=== PATIENT | female | born 1990 | race American Indian/Alaskan Native ===

== ENCOUNTER 2021-03-29 20:18 | Emergency (ER) | payer MEDICAID, OTHER ==
[2021-03-29] MEDS ORDERED: KETOROLAC 30 MG/1 ML INJ IV ONE (20:46)
[2021-03-29 20:54] LABS: Basophils % (Auto) 0.6 % (0.0-1.8); Eosinophils # (Auto) 0.1 K/mm3 (0.0-0.4); Eosinophils % (Auto) 1.9 % (0.0-4.3); Hemoglobin 13.1 gm/dl (10.1-14.3); Lymphocytes # (Auto) 2.5 K/mm3 (1.2-5.4); Lymphocytes % (Auto) 34.2 % (13.4-35.0); Mean Corpuscular HGB Conc 33 % (30-34); Mean Corpuscular Volume 86 fl (79-97); Monocytes # (Auto) 0.5 K/mm3 (0.0-0.8); Monocytes % (Auto) 6.1 % (0.0-7.3); Platelet Count 336 K/mm3 (140-440); Red Blood Count 4.64 M/mm3 (3.65-5.03)
--- NOTE | 2021-03-29 20:54 | Emergency Department Report ---
HPI - General Chief Complaint: Abdominal Pain Time Seen by Provider: 03/29/21 20:36 - HPI HPI: 31-year-old -[place] female, with no pertinent past medical history, presented emergency room for evaluation of lower abdominal pain. She reported that she has been experiencing this pain for about 1 year, occurring intermittently. Patient reported however pain started again today when she woke up, she reported pain is in the lower abdomen area, generally noted more in the left lower quadrant and suprapubic area, worse when she moves around and walk. She reported she is able to feel something in the lower abdomen area. She reported when she is resting the pain is 0/10. She described the pain as a pressure sensation that wax and wane. She reported no other associated symptoms, she denies fever, chills, nausea, vomiting, any urinary symptoms such as dysuria, frequency, or urgency. Patient reported that she has a scheduled ultrasound ordered by her car shagger. Patient also reported that recently that her IUD was removed and she was diagnosed with 5 days. ED Past Medical Hx - Past Medical History Additional medical history: a hernia in my chest , heart problems neve dx? - Social History Smoking Status: Never Smoker Substance Use Type: None - Medications Home Medications: Home Medications Medication Instructions Recorded Confirmed Last Taken Type Amoxicillin/K Clav Tab [Augmentin 1 tab PO Q12HR #20 tab 08/10/15 Unknown Rx 875 mg] Fluticasone [Flonase] 2 spray NS QDAY #1 bottle 08/10/15 Unknown Rx Loratadine (Nf) [Claritin] 10 mg PO DAILY #30 tablet 08/10/15 Unknown Rx Prednisone [predniSONE 10 mg 10 mg PO .TAPER #1 tab.ds.pk 08/10/15 Unknown Rx (6-Day Pack, 21 Tabs)] Promethazine /Codeine 5 ml PO Q6H PRN #150 ml 08/10/15 Unknown Rx [Phenergan/Codeine 6.25-10 mg/5 ml] ED Review of Systems ROS: Stated complaint: FIBROIDS Other details as noted in HPI Comment: All other systems reviewed and negative Constitutional: denies: chills, fever Eyes: denies: eye pain ENT: denies: ear pain, throat pain Respiratory: denies: cough, orthopnea, shortness of breath Cardiovascular: denies: chest pain, palpitations, dyspnea on exertion Endocrine: denies: excessive sweating Gastrointestinal: abdominal pain (Left lower quadrant, suprapubic,). denies: nausea, vomiting, diarrhea, constipation Genitourinary: denies: urgency, dysuria, hematuria Skin: denies: rash Neurological: denies: headache, weakness Psychiatric: denies: anxiety, depression Hematological/Lymphatic: denies: easy bleeding Physical Exam - Physical Exam Vital Signs: Vital Signs 03/29/21 20:22 Temperature 97.7 F Pulse Rate 69 Respiratory 19 Rate Blood Pressure 122/77 [Right] O2 Sat by Pulse 100 Oximetry ED Course Vital Signs 03/29/21 20:22 Temperature 97.7 F Pulse Rate 69 Respiratory 19 Rate Blood Pressure 122/77 [Right] O2 Sat by Pulse 100 Oximetry Critical care attestation.: If time is entered above; I have spent that time in minutes in the direct care of this critically ill patient, excluding procedure time. ED Disposition Condition: Stable Instructions: Abdominal Pain (ED)
--- NOTE | 2021-03-29 20:59 | Emergency Department Report ---
ED Abdominal Pain HPI - General Chief Complaint: Abdominal Pain Stated Complaint: FIBROIDS Time Seen by Provider: 03/29/21 20:36 Source: patient Mode of arrival: Ambulatory Limitations: No Limitations - History of Present Illness Initial Comments: 31-year-old -[place] female, with no pertinent past medical history, presented emergency room for evaluation of lower abdominal pain. She reported that she has been experiencing this pain for about 1 year, occurring intermittently. Patient reported however pain started again today when she woke up, she reported pain is in the lower abdomen area, generally noted more in the left lower quadrant and suprapubic area, worse when she moves around and walk. She reported she is able to feel something in the lower abdomen area. She reported when she is resting the pain is 0/10. She described the pain as a pressure sensation that wax and wane. She reported no other associated symptoms, she denies fever, chills, nausea, vomiting, any urinary symptoms such as dysuria, frequency, or urgency. Patient reported that she has a scheduled ultrasound ordered by her zipper measurer. Patient also reported that recently that her IUD was removed and she was diagnosed with 5 days -: Sudden, hour(s) Location: LUQ, suprapubic Radiation: none Migration to: LUQ, suprapubic, other (Migrating lower abdomen areas) Severity: mild Severity scale (0 -10): 0 (While being still) Quality: stabbing Consistency: intermittent Improves With: rest Worsens With: movement Associated Symptoms: denies other symptoms - Related Data Previous Rx's Medication Instructions Recorded Last Taken Type Amoxicillin/K Clav Tab [Augmentin 1 tab PO Q12HR #20 tab 08/10/15 Unknown Rx 875 mg] Fluticasone [Flonase] 2 spray NS QDAY #1 bottle 08/10/15 Unknown Rx Loratadine (Nf) [Claritin] 10 mg PO DAILY #30 tablet 08/10/15 Unknown Rx Prednisone [predniSONE 10 mg 10 mg PO .TAPER #1 tab.ds.pk 08/10/15 Unknown Rx (6-Day Pack, 21 Tabs)] Promethazine /Codeine 5 ml PO Q6H PRN #150 ml 08/10/15 Unknown Rx [Phenergan/Codeine 6.25-10 mg/5 ml] Ibuprofen [Motrin] 600 mg PO Q8H PRN 10 Days #30 03/30/21 Unknown Rx tablet Allergies Allergy/AdvReac Type Severity Reaction Status Date / Time latex Allergy Swelling Verified 03/29/21 20:22 ED Review of Systems ROS: Stated complaint: FIBROIDS Other details as noted in HPI Constitutional: denies: chills, fever Eyes: denies: eye pain ENT: denies: ear pain, throat pain Respiratory: denies: cough, orthopnea, shortness of breath Cardiovascular: denies: chest pain, palpitations, dyspnea on exertion Endocrine: denies: excessive sweating Gastrointestinal: abdominal pain (Left lower quadrant, suprapubic,). denies: nausea, vomiting, diarrhea, constipation Genitourinary: denies: urgency, dysuria, hematuria Skin: denies: rash Neurological: denies: headache, weakness Psychiatric: denies: anxiety, depression Hematological/Lymphatic: denies: easy bleeding ED Past Medical Hx - Past Medical History Additional medical history: a hernia in my chest , heart problems neve dx? - Social History Smoking Status: Never Smoker Substance Use Type: None - Medications Home Medications: Home Medications Medication Instructions Recorded Confirmed Last Taken Type Amoxicillin/K Clav Tab [Augmentin 1 tab PO Q12HR #20 tab 08/10/15 Unknown Rx 875 mg] Fluticasone [Flonase] 2 spray NS QDAY #1 bottle 08/10/15 Unknown Rx Loratadine (Nf) [Claritin] 10 mg PO DAILY #30 tablet 08/10/15 Unknown Rx Prednisone [predniSONE 10 mg 10 mg PO .TAPER #1 tab.ds.pk 08/10/15 Unknown Rx (6-Day Pack, 21 Tabs)] Promethazine /Codeine 5 ml PO Q6H PRN #150 ml 08/10/15 Unknown Rx [Phenergan/Codeine 6.25-10 mg/5 ml] Ibuprofen [Motrin] 600 mg PO Q8H PRN 10 Days #30 03/30/21 Unknown Rx tablet ED Physical Exam - General Limitations: No Limitations General appearance: alert, in no apparent distress - Head Head exam: Present: atraumatic, normocephalic, normal inspection - Eye Eye exam: Present: normal appearance, PERRL, EOMI Pupils: Present: normal accommodation - ENT ENT exam: Present: normal exam - Neck Neck exam: Present: normal inspection - Respiratory Respiratory exam: Present: normal lung sounds bilaterally. Absent: respiratory distress, rales, rhonchi, stridor - Cardiovascular Cardiovascular Exam: Present: regular rate, normal rhythm - GI/Abdominal GI/Abdominal exam: Present: soft, tenderness (LLQ and suprapubic area), guarding, rebound, normal bowel sounds. Absent: distended, rigid - Rectal Rectal exam: Present: deferred - Extremities Exam Extremities exam: Present: normal inspection - Back Exam Back exam: Present: normal inspection - Neurological Exam Neurological exam: Present: alert, oriented X3 ED Course Vital Signs 03/29/21 03/29/21 20:22 20:54 Temperature 97.7 F Pulse Rate 69 Respiratory 19 Rate Blood Pressure 122/77 [Right] O2 Sat by Pulse 100 99 Oximetry - Reevaluation(s) Reevaluation #1: 03/30/21 00:59 Patient presented to the ED with lower abdominal pain. Evaluated in the ED with blood test, CT scan and ultrasound. Results reviewed with patient. Patient can follow-up with her [facility] ED Medical Decision Making - Lab Data Result diagrams: 03/29/21 Unknown 03/29/21 Unknown - Radiology Data Radiology results: report reviewed I have reviewed the results of the CT scan. Patient is noted to have minimal amount of free fluid in the cul-de-sac. Adnexal mass. Also there is a 2 cm degenerated partially calcified fibroid in the anterior uterine body. There is a incidental 1.8 cm enhancing lesion in the left lobe of the liver. The auto bumper mechanic provided a preliminary report for an outpatient ultrasound showed normal ovaries with normal blood flow, no free fluid, noted calcified fibroids - Medical Decision Making Patient presents to ED for evaluation of abdominal pain. Differential diagnosis includes chronic abdominal pain, ruptured ovarian cyst, ovarian torsion, constipation, UTI, cystitis - Differential Diagnosis Ovarian rupture/cyst/torsion, appy, constipation, UTI/cystitis Critical care attestation.: If time is entered above; I have spent that time in minutes in the direct care of this critically ill patient, excluding procedure time. ED Disposition Clinical Impression: Abdominal pain Qualifiers: Abdominal location: lower abdomen, unspecified Qualified Code(s): R10.30 - Lower abdominal pain, unspecified Disposition: HOME / SELF CARE / HOMELESS Is pt being admited?: No Does the pt Need Aspirin: No Condition: Stable Instructions: Abdominal Pain (ED), Ovarian Cyst, Uterine Fibroids, Uterine Artery Embolization for Fibroids, Dysfunctional Uterine Bleeding, Abdominal Pain, Adult, [id number] Prescriptions: Ibuprofen [Motrin] 600 mg PO Q8H PRN 10 Days #30 tablet PRN Reason: Pain Referrals: KAYLA BBO JR, MD [Primary Care Provider] - 3-5 Days Time of Disposition: 01:01 Print Language: SLOVENIAN
[2021-03-29 21:14] LABS: Alanine Aminotransferase 7 units/L (7-56); Albumin 4.3 g/dL (3.9-5); Blood Urea Nitrogen 12 mg/dL (7-17); Calcium 9.1 mg/dL (8.4-10.2); Hemolysis Index 12
[2021-03-29 21:17] LABS: BUN/Creatinine Ratio 20
--- NOTE | 2021-03-30 00:54 | Cat Scan Report ---
CT OF THE ABDOMEN AND PELVIS WITH INTRAVENOUS CONTRAST INDICATION / CLINICAL INFORMATION: Extreme lower abdominal and pelvic pain. TECHNIQUE: The patient received 100 cc Omnipaque [address] scans at this location are performed using CT dose reduction for ALARA by means of automated exposure control. COMPARISON: None available. FINDINGS: ABDOMEN: There is a 1.8 cm rounded uniformly hypervascular lesion in the medial segment of the left l obe of the liver anteriorly on corticomedullary phase images. The lesion is barely perceptible on adolfo lographic phase images. No other liver lesion is seen. The gallbladder, bile ducts, pancreas, spleen, adrenal glands and kidneys are normal. There is a mode rate amount of stool throughout the colon. I see no evidence of bowel obstruction, wall thickening or free air. The aorta is normal. No adenopathy is present. The lung bases are clear. PELVIS: There is a 2.1 cm rounded mass in the anterior uterine body which demonstrates peripheral rim calcification and likely represents a degenerated fibroid. There is also a 1 cm fibroid in the super ior uterine fundus. Minimal free fluid is present in the cul-de-sac. I do not identify an adnexal mas s. A normal appendix is present and there is no evidence of diverticulitis. I do not identify a herni a. No acute osseous abnormality is seen. IMPRESSION: 1. Minimal amount of free fluid in the cul-de-sac without adnexal mass. 2. 2 cm degenerated, partially calcified fibroid in the anterior uterine body. 3. Incidental 1.8 cm enhancing lesion in the left lobe of the liver is nonspecific. Differential diag nosis includes hepatic adenoma and flash filling of a cavernous hemangioma. Nonemergent contrast-enha nced MRI may be helpful in further characterization. Signer Name: Levi Jung MD Signed: 03/30/2021 12:50 AM Workstation Name: [id number]
--- NOTE | 2021-03-30 01:32 | Ultrasound Report ---
TRANSABDOMINAL PELVIC ULTRASOUND INDICATION / CLINICAL INFORMATION: Lower abdominal/pelvic pain; torsion vs rupture cyst. COMPARISON: CT of the abdomen and pelvis earlier tonight. FINDINGS: The uterus measures 8.9 x 5.0 x 6.3 cm. The endometrial stripe measures 1 cm AP. There is a 2.2 cm ma ss in the anterior uterine body which demonstrates rim calcification. The right ovary measures 3.5 x 1.6 x 1.9 cm and the left ovary 3.4 x 2.0 x 2.5 cm. There is a 9 mm si mple follicle in the right ovary. There is normal blood flow to both ovaries on Doppler exam. No sign ificant free fluid is identified sonographically. IMPRESSION: 1. No evidence of ovarian mass or torsion. 2. 2.2 cm uterine fibroid with rim calcification. Signer Name: Levi Jung MD Signed: 03/30/2021 1:27 AM Workstation Name: [id number]
[2021-03-30 01:53] VITALS: BP 116/81
== END 2021-03-30 01:53 | disposition home or self-care (01) ==
LOC: ED 20:18
DX: R10.30 Lower abdominal pain, unspecified (principal); Z91.040 Latex allergy status
CPT/HCPCS: 36415; 74177; 76856; 80053; 83690; 84703; 85025; 96374; 99284; J1885; Q9967

== ENCOUNTER 2021-09-20 13:32 | Emergency (ER) | payer OTHER, MEDICAID ==
[2021-09-20] MEDS ORDERED: ONDANSETRON 4 MG/2 ML INJ IV ONE (15:50)
[2021-09-20] MEDS ORDERED: LACTATED RINGERS 1,000 ML IV ONE (15:50)
[2021-09-20] MEDS ORDERED: PYRIDOXINE 50 MG TAB PO STA (15:50)
--- NOTE | 2021-09-20 15:55 | Emergency Department Report ---
ED N/V/D HPI - General Chief complaint: Nausea/Vomiting/Diarrhea Stated complaint: N/V Time Seen by Provider: 09/20/21 15:37 Source: patient Mode of arrival: Ambulatory Limitations: No Limitations - History of Present Illness Initial comments: 31-year-old female is currently about 13 weeks presents to the ER with complaints of nausea and vomiting. Patient states that symptoms started 3 days ago. She states that emesis is mainly bilious. She reports associated diffuse body cramping including abdominal cramping. She denies any abnormal vaginal bleeding or discharge. She denies any UTI symptoms. She states that her last bowel movement was about 2 weeks ago. She denies any fever or chills. She states that she went to [employer] today, she did have normal heart tones at the office and her urine was checked and it was normal but her [employer] sent her to the ER for IV fluids due to concern for hyperemesis gravidarum. She is G4, P1 Ab2. She states that she has had 2 OB ultrasounds which showed normal IUP. MD complaint: nausea, vomiting, other (13 weeks ) -: days(s) (2) - Related Data Previous Rx's Medication Instructions Recorded Last Taken Type Doxylamine Succinate/Vit B6 1 each PO QHS #15 09/20/21 Unknown Rx [Toyin Dr 10-10 mg Tablet] Ondansetron [Zofran Odt] 4 mg PO Q8HR PRN #15 tab.rapdis 09/20/21 Unknown Rx raNITIdine HCl [Zantac] 150 mg PO BID #30 09/20/21 Unknown Rx Allergies Allergy/AdvReac Type Severity Reaction Status Date / Time latex Allergy Swelling Verified 09/20/21 16:59 ED Review of Systems ROS: Stated complaint: N/V Other details as noted in HPI Comment: All other systems reviewed and negative Constitutional: denies: chills, fever Eyes: denies: eye pain, eye discharge, vision change ENT: denies: ear pain, throat pain Cardiovascular: denies: chest pain, palpitations Endocrine: no symptoms reported Gastrointestinal: abdominal pain, nausea, vomiting. denies: diarrhea, constipation, hematemesis, melena, hematochezia Genitourinary: denies: urgency, dysuria, discharge Musculoskeletal: myalgia Skin: denies: rash, lesions, change in color, change in hair/nails, pruritus Neurological: denies: headache, weakness, numbness, paresthesias, confusion, abnormal gait, vertigo Psychiatric: denies: anxiety, depression, auditory hallucinations, visual hallucinations, homicidal thoughts ED Past Medical Hx - Past Medical History Additional medical history: a hernia in my chest , heart problems neve dx? - Social History Smoking Status: Never Smoker Substance Use Type: None - Medications Home Medications: Home Medications Medication Instructions Recorded Confirmed Last Taken Type Doxylamine Succinate/Vit B6 1 each PO QHS #15 09/20/21 Unknown Rx [Diclegis Dr 10-10 mg Tablet] Ondansetron [Zofran Odt] 4 mg PO Q8HR PRN #15 tab.rapdis 09/20/21 Unknown Rx raNITIdine HCl [Zantac] 150 mg PO BID #30 09/20/21 Unknown Rx ED Physical Exam - General Limitations: No Limitations General appearance: alert, in no apparent distress - Head Head exam: Present: atraumatic, normocephalic, normal inspection - ENT ENT exam: Present: mucous membranes moist - Neck Neck exam: Present: normal inspection, full ROM. Absent: meningismus - Respiratory Respiratory exam: Present: normal lung sounds bilaterally. Absent: respiratory distress, wheezes, rales, rhonchi - Cardiovascular Cardiovascular Exam: Present: regular rate, normal rhythm, normal heart sounds - GI/Abdominal GI/Abdominal exam: Present: soft, tenderness (mild diffuse ttp). Absent: distended - Neurological Exam Neurological exam: Present: alert, oriented X3, CN II-XII intact, normal gait - Psychiatric Psychiatric exam: Present: normal affect, normal mood - Skin Skin exam: Present: intact ED Course Vital Signs 09/20/21 09/20/21 14:08 16:55 Temperature 98.7 F Pulse Rate 100 H Respiratory 18 16 Rate Blood Pressure 104/57 [Right] O2 Sat by Pulse 99 Oximetry ED Medical Decision Making - Lab Data Result diagrams: 09/20/21 16:17 09/20/21 16:17 Laboratory Results - last 24 hr 09/20/21 09/20/21 09/20/21 16:17 16:17 16:17 WBC 6.0 RBC 4.47 Hgb 13.0 Hct 37.7 MCV 84 MCH 29 MCHC 35 H RDW 13.6 Plt Count 292 Lymph % (Auto) 8.0 L [place] % (Auto) 4.2 Eos % (Auto) 0.2 Baso % (Auto) 0.1 Lymph # (Auto) 0.5 L [place] # (Auto) 0.3 Eos # (Auto) 0.0 Baso # (Auto) 0.0 Seg Neutrophils % 87.5 H Seg Neutrophils # 5.3 Sodium 132 L Potassium 3.9 Chloride 97.4 L Carbon Dioxide 18 L Anion Gap 21 BUN 7 Creatinine 0.6 Estimated GFR > 60 BUN/Creatinine Ratio 12 Glucose 83 Calcium 9.2 Total Bilirubin 1.60 H AST 15 ALT 9 Alkaline Phosphatase 55 Total Protein 6.5 Albumin 3.7 L Albumin/Globulin Ratio 1.3 HCG, Qual Positive HCG, Quant Urine Color Urine Turbidity Urine pH Ur Specific [place] Urine Protein Urine Glucose (UA) Urine Ketones Urine Blood Urine Nitrite Ur Reducing Substances Urine Bilirubin Urine Ictotest Urine Urobilinogen Ur Leukocyte Esterase Urine WBC (Auto) Urine RBC (Auto) U Epithel Cells (Auto) Urine Mucus 09/20/21 09/20/21 16:17 17:01 WBC RBC Hgb Hct MCV MCH MCHC RDW Plt Count Lymph % (Auto) [place] % (Auto) Eos % (Auto) Baso % (Auto) Lymph # (Auto) [place] # (Auto) Eos # (Auto) Baso # (Auto) Seg Neutrophils % Seg Neutrophils # Sodium Potassium Chloride Carbon Dioxide Anion Gap BUN Creatinine Estimated GFR BUN/Creatinine Ratio Glucose Calcium Total Bilirubin AST ALT Alkaline Phosphatase Total Protein Albumin Albumin/Globulin Ratio HCG, Qual HCG, Quant 84766 H Urine Color Yellow Urine Turbidity Slightly-cloudy Urine pH 5.0 Ur Specific [place] 1.027 Urine Protein 30 mg/dl Urine Glucose (UA) Neg Urine Ketones 80 Urine Blood Neg Urine Nitrite Neg Ur Reducing Substances Not Reportable Urine Bilirubin Neg Urine Ictotest Not Reportable Urine Urobilinogen 2.0 Ur Leukocyte Esterase Neg Urine WBC (Auto) 1.0 Urine RBC (Auto) 1.0 U Epithel Cells (Auto) 35.0 H Urine Mucus 3+ - Medical Decision Making 1809: All labs reviewed-CBC unremarkable. CMP shows changes consistent with some mild dehydration but nothing significantly abnormal. Urinalysis unremarkable. Patient reports that she feels a little bit better after the IV fluids and Zofran. She still feels nauseous. She has not vomited during stay. She was able to tolerate some water and she took the oral Tylenol but she feels some discomfort in her epigastric area. IV dose of Reglan and oral dose of Pepcid ordered and will reevaluate patient. 1857: Patient now complaining of feeling hot all over and burning all over after reglan. She has no rash or abnormal muscle movements. SHe is not SOB, not in respiratory distress and has not facial/oral or extremity swelling. Dose of benadryl ordered and patient also attempting PO challenge. Will re-eval after benadryl and see if patient tolerate PO Challenge. The patient's care has been transferred to and accepted by[CHARI Gamble]. We discussed: The patient's chief complaints; labs that have been completed and those that are still pending; any treatment provided and the patient's response to treatment; any significant change in condition; the treatment plan prior to the transfer of care. The accepting provider will follow up on all pending labs and make any necessary changes to the current impression and/or treatment plan. The accepting physician/midlevel is now responsible for the patient's care and final disposition. Critical care attestation.: If time is entered above; I have spent that time in minutes in the direct care o f this critically ill patient, excluding procedure time. ED Disposition Clinical Impression: Hyperemesis gravidarum Disposition: 01 HOME / SELF CARE / HOMELESS Is pt being admited?: No Does the pt Need Aspirin: No Condition: Stable Instructions: Hyperemesis Gravidarum Additional Instructions: I recommend taking the zofran as needed for nausea and vomiting, the diclegis daily at night to also help with vomiting and the zantac to help with indigestion. I recommend sipping on fluids including charlotte jane and also recommend eating on charlotte products. I recommend trying smaller frequent meals instead of large meals. Follow up with OBGYN in next 3-4 days. Return to ED if worse. Prescriptions: Doxylamine Succinate/Vit B6 [Diclegis Dr 10-10 mg Tablet] 1 each PO QHS #15 raNITIdine HCl [Zantac] 150 mg PO BID #30 Ondansetron [Zofran Odt] 4 mg PO Q8HR PRN #15 tab.rapdis PRN Reason: Vomiting Referrals: PRIMARY CARE,MD [Primary Care Provider] - 3-5 Days Forms: Work/School Release Form(ED) Time of Disposition: 18:29
[2021-09-20 16:39] LABS: Basophils % (Auto) 0.1 % (0.0-1.8); Eosinophils % (Auto) 0.2 % (0.0-4.3); Hematocrit 37.7 % (30.3-42.9); Lymphocytes # (Auto) 0.5 K/mm3 (1.2-5.4); Mean Corpuscular HGB Conc 35 % (30-34); Mean Corpuscular Volume 84 fl (79-97); Monocytes # (Auto) 0.3 K/mm3 (0.0-0.8); Monocytes % (Auto) 4.2 % (0.0-7.3); Platelet Count 292 K/mm3 (140-440); Red Blood Count 4.47 M/mm3 (3.65-5.03); Red Cell Distribution Width 13.6 % (13.2-15.2)
[2021-09-20] MEDS ORDERED: ACETAMINOPHEN 500 MG TAB PO ONE (16:50)
[2021-09-20 16:57] LABS: Alanine Aminotransferase 9 units/L (7-56); Albumin 3.7 g/dL (3.9-5); Blood Urea Nitrogen 7 mg/dL (7-17); Calcium 9.2 mg/dL (8.4-10.2); Hemolysis Index 7
[2021-09-20 16:59] LABS: BUN/Creatinine Ratio 12
[2021-09-20 17:29] LABS: Mucus,Urine 3+ /HPF
[2021-09-20 17:44] LABS: Bilirubin,Urine NEG (Negative); Blood,Urine NEG (Negative); Color,Urine Yellow (Yellow)
[2021-09-20] MEDS ORDERED: FAMOTIDINE 20 MG TAB PO ONE (18:00)
[2021-09-20] MEDS ORDERED: METOCLOPRAMIDE 10 MG/2 ML INJ IV ONE (18:00)
[2021-09-20] MEDS ORDERED: diphenhydrAMINE 50 MG/ML VIAL IV ONE (18:51)
[2021-09-20 19:45] VITALS: BP 129/80
== END 2021-09-20 19:45 | disposition home or self-care (01) ==
LOC: ED 13:32
DX: O21.0 Mild hyperemesis gravidarum (principal); Z3A.13 13 weeks gestation of pregnancy; K46.9 Unspecified abdominal hernia without obstruction or gangrene; Z91.040 Latex allergy status
CPT/HCPCS: 36415; 80053; 81001; 84702; 84703; 85025; 96361; 96374; 96375; 99283; J1200; J2405; J2765; J7120